=== PATIENT | male | born 1945 | race Two or more races ===

== ENCOUNTER 2023-08-28 09:45 | Inpatient (IN) | payer OTHER ==
[~2023-08-28] VITALS: Ht 175.3 cm; Wt 60.8 kg
[2023-08-28] MEDS ORDERED: LIPITOR40 MG PO (14:18)
[2023-08-28] MEDS ORDERED: TRADJENTA5 MG PO (14:18)
[2023-08-28] MEDS ORDERED: GLIPIZIDE XL2.5 MG PO (14:18)
[2023-08-28] MEDS ORDERED: LANTUS SOL100 UNIT/1 (14:18)
[2023-08-28] MEDS ORDERED: METFORMIN HCL500 M3 PO (14:19)
[2023-09-03 21:20] LABS: HEMATOCRIT 36.2 % (39.0-48.0); HEMOGLOBIN 12.4 g/dL (13-16.00); MEAN CELL VOLUME 91.1 fL (80.0-100.00); MEAN CORPUSCULAR HEMOGLOBIN 31.3 pg (27.00-32.0); MEAN CORPUSCULAR HGB CONC 34.3 g/dl (32.0-36.0); PLATELET COUNT 204 K/uL (150-450); RED BLOOD COUNT 3.97 M/uL (4.00-6.00); RED CELL DISTRIBUTION WIDTH 13.7 % (11.5-14.5)
[2023-09-03 21:38] LABS: ALBUMIN 3.3 gm/dL (3.4-5.0); CALCIUM 8.9 mg/dL (8.5-10.1); CREATININE SERUM 1.13 mg/dL (0.70-1.30); GFR 62.76; MAGNESIUM 1.8 mg/dL (1.8-2.4); PHOSPHOROUS 3.5 mg/dL (2.5-4.9); POTASSIUM 4.85 mEq/L (3.5-5.1)
[2023-09-04 06:29] LABS: HEMATOCRIT 35.1 % (39.0-48.0); HEMOGLOBIN 12.3 g/dL (13-16.00); MEAN CELL VOLUME 90.5 fL (80.0-100.00); MEAN CORPUSCULAR HEMOGLOBIN 31.7 pg (27.00-32.0); PLATELET COUNT 180 K/uL (150-450); RED BLOOD COUNT 3.88 M/uL (4.00-6.00); RED CELL DISTRIBUTION WIDTH 13.3 % (11.5-14.5)
[2023-09-04 06:55] LABS: ALBUMIN 3.1 gm/dL (3.4-5.0); CALCIUM 8.3 mg/dL (8.5-10.1); CREATININE SERUM 0.98 mg/dL (0.70-1.30); GFR 73.97; MAGNESIUM 1.9 mg/dL (1.8-2.4); PHOSPHOROUS 3.1 mg/dL (2.5-4.9); POTASSIUM 4.68 mEq/L (3.5-5.1)
[2023-09-05 06:44] LABS: HEMATOCRIT 34.9 % (39.0-48.0); HEMOGLOBIN 12.3 g/dL (13-16.00); MEAN CORPUSCULAR HEMOGLOBIN 31.8 pg (27.00-32.0); MEAN CORPUSCULAR HGB CONC 35.3 g/dl (32.0-36.0); PLATELET COUNT 196 K/uL (150-450); RED BLOOD COUNT 3.88 M/uL (4.00-6.00); RED CELL DISTRIBUTION WIDTH 13.8 % (11.5-14.5)
[2023-09-05 07:09] LABS: CALCIUM 8.1 mg/dL (8.5-10.1); CREATININE SERUM 0.99 mg/dL (0.70-1.30); GFR 73.11; MAGNESIUM 2.1 mg/dL (1.8-2.4); PHOSPHOROUS 2.3 mg/dL (2.5-4.9); POTASSIUM 4.66 mEq/L (3.5-5.1)
[2023-09-06] MEDS ORDERED: TRAM1TAB98 PO (12:26)
[2023-09-06] MEDS ORDERED: HYOSCYAMINE0.125 M1 SL (12:26)
[2023-09-06] MEDS ORDERED: PEPCID AC20 MG PO (12:27)
== END 2023-09-06 12:41 | disposition home or self-care (01) | DRG 330 ==
LOC: SURH 09-03 09:45 → O/R 09-03 10:30 → SURH 09-03 12:30 → SURG 09-03 19:55
PROVIDERS: Internal Medicine Geriatric Medicine; ADMIT Surgery; ATTEND Surgery
PROC: 0DTP4ZZ Resection of Rectum, Percutaneous Endoscopic Approach (ICD-10-PCS; 2023-09-03)
PROC: 0DTN4ZZ Resection of Sigmoid Colon, Percutaneous Endoscopic Approach (ICD-10-PCS; 2023-09-03)
PROC: 07BC4ZZ Excision of Pelvis Lymphatic, Percutaneous Endoscopic Approach (ICD-10-PCS; 2023-09-03)
PROC: 0DJD8ZZ Inspection of Lower Intestinal Tract, Via Natural or Artificial Opening Endoscopic (ICD-10-PCS; 2023-09-03)
PROC: 0D1B4Z4 Bypass Ileum to Cutaneous, Percutaneous Endoscopic Approach (ICD-10-PCS; principal; 2023-09-03 12:30)
DX: C20 Malignant neoplasm of rectum (principal); K92.1 Melena; E11.65 Type 2 diabetes mellitus with hyperglycemia; R59.0 Localized enlarged lymph nodes; K66.0 Peritoneal adhesions (postprocedural) (postinfection); Z43.2 Encounter for attention to ileostomy; Z79.84 Long term (current) use of oral hypoglycemic drugs

== ENCOUNTER 2023-09-18 09:34 | Inpatient (IN) | payer OTHER ==
[~2023-09-18] VITALS: Ht 175.3 cm; Wt 51.3 kg
[~2023-09-18 09:34] MED LIST: GLIPIZIDE XL2.5 MG PO; HYOSCYAMINE0.125 M1 SL; LANTUS SOL100 UNIT/1; LIPITOR40 MG PO; METFORMIN HCL500 M3 PO; PEPCID AC20 MG PO; TRADJENTA5 MG PO; TRAM1TAB98 PO
[2023-09-18] MEDS ORDERED: INSULIN GL100 UNIT/3 (10:10)
[2023-09-18] MEDS ORDERED: METFORMIN HCL500 M4 (10:11)
[2023-09-18] MEDS ORDERED: LIPITOR40 MG (10:11)
[2023-09-18] MEDS ORDERED: PEPCID AC20 MG (10:11)
[2023-09-18 16:41] LABS: ABG PH 7.406 (7.35-7.45); ABG PO2 141.1 mmHg (80-100); ABG pCO2 29.1 mmHg (35-45); BASE EXCESS -5.3 mmol/l; BICARBONATE 17.9 mmol/l (23-25); Tco2 18.8 mmol/l; allen test SATISFACTORY; o2 32 %; puncture site BRADIAL LEFT
[2023-09-18 16:42] LABS: SaO2 99.1 %
[2023-09-18 17:13] LABS: HEMATOCRIT 40.7 % (39.0-48.0); HEMOGLOBIN 14.2 g/dL (13-16.00); MEAN CELL VOLUME 86.7 fL (80.0-100.00); MEAN CORPUSCULAR HEMOGLOBIN 30.3 pg (27.00-32.0); MEAN CORPUSCULAR HGB CONC 34.9 g/dl (32.0-36.0); PLATELET COUNT 556 K/uL (150-450); RED CELL DISTRIBUTION WIDTH 13.4 % (11.5-14.5)
[2023-09-18 17:19] LABS: ERYTHROCYTE SEDIMENTATION RATE 28 mm/hr
[2023-09-18 17:26] LABS: CREATININE SERUM 2.6 mg/dL (0.70-1.30); GFR 23.99; MAGNESIUM 2.8 mg/dL (1.8-2.4); PHOSPHOROUS 5.2 mg/dL (2.5-4.9); POTASSIUM 5.09 mEq/L (3.5-5.1)
[2023-09-18 17:34] LABS: C-REACTIVE PROTEIN 12.6 MG/DL (0.00-0.29)
[2023-09-19 07:52] LABS: ALBUMIN 3.1 gm/dL (3.4-5.0); BILIRUBIN TOTAL 0.52 mg/dL (0.3-1.2); CALCIUM 9.3 mg/dL (8.5-10.1); CREATININE SERUM 2.19 mg/dL (0.70-1.30); GFR 29.25; GLOBULINA 3.7 G/DL (2.4-3.5); MAGNESIUM 2.6 mg/dL (1.8-2.4); PHOSPHOROUS 4.5 mg/dL (2.5-4.9); POTASSIUM 4.93 mEq/L (3.5-5.1); TOTAL PROTEIN 6.8 gm/dL (6.4-8.2)
[2023-09-19 07:55] LABS: C-REACTIVE PROTEIN 13.4 MG/DL (0.00-0.29)
[2023-09-19 10:49] LABS: HEMOGLOBIN 12.8 g/dL (13-16.00); MEAN CELL VOLUME 87.5 fL (80.0-100.00); MEAN CORPUSCULAR HEMOGLOBIN 30.2 pg (27.00-32.0); MEAN CORPUSCULAR HGB CONC 34.5 g/dl (32.0-36.0); PLATELET COUNT 481 K/uL (150-450); RED BLOOD COUNT 4.23 M/uL (4.00-6.00)
[2023-09-19 19:20] LABS: URINE APPEARANCE Turbid; URINE BILIRRUBIN Negative (NEGATIVE); URINE BLOOD Large; URINE COLOR Yellow; URINE GLUCOSE Negative (NEGATIVE); URINE LEUKOCYTE Trace; URINE NITRATE Negative; URINE PROTEIN 30 (NEGATIVE); URINE UROBILINOGEN 0.2 E.U./dl
[2023-09-19 19:21] LABS: URINE BACTERIA 153.7 uL (0.0-1933); URINE EPITHELIAL CELLS 7.7 uL (0.0-38.8); URINE RBC 1065.5 uL (0.0-20.8); URINE WBC 13.9 uL (0.0-23.2)
[2023-09-19 19:50] LABS: URINE CRYSTALS MANY /HPF
[2023-09-20 08:27] LABS: HEMOGLOBIN 12.3 g/dL (13-16.00); MEAN CELL VOLUME 89.3 fL (80.0-100.00); MEAN CORPUSCULAR HEMOGLOBIN 30.5 pg (27.00-32.0); MEAN CORPUSCULAR HGB CONC 34.1 g/dl (32.0-36.0); PLATELET COUNT 467 K/uL (150-450); RED BLOOD COUNT 4.03 M/uL (4.00-6.00)
[2023-09-20 08:50] LABS: CALCIUM 8.7 mg/dL (8.5-10.1); CREATININE SERUM 1.7 mg/dL (0.70-1.30); GFR 39.17; MAGNESIUM 2.5 mg/dL (1.8-2.4); PHOSPHOROUS 3.7 mg/dL (2.5-4.9); POTASSIUM 4.88 mEq/L (3.5-5.1)
[2023-09-20 08:51] LABS: INR 1.09; PARTIAL THROMBOPLASTIN TIME 31.9 SECONDS (22.0-34.0); PROTHROMBIN TIME 11.4 SECONDS (9.0-11.5)
[2023-09-21 07:11] LABS: ALBUMIN 2.5 gm/dL (3.4-5.0); CALCIUM 8.9 mg/dL (8.5-10.1); CREATININE SERUM 1.44 mg/dL (0.70-1.30); GFR 47.44; MAGNESIUM 2.3 mg/dL (1.8-2.4); PHOSPHOROUS 2.6 mg/dL (2.5-4.9); POTASSIUM 5.03 mEq/L (3.5-5.1)
[2023-09-21 07:18] LABS: HEMATOCRIT 33.7 % (39.0-48.0); HEMOGLOBIN 11.8 g/dL (13-16.00); MEAN CELL VOLUME 90.2 fL (80.0-100.00); MEAN CORPUSCULAR HEMOGLOBIN 31.6 pg (27.00-32.0); PLATELET COUNT 377 K/uL (150-450); RED BLOOD COUNT 3.73 M/uL (4.00-6.00); RED CELL DISTRIBUTION WIDTH 13.1 % (11.5-14.5)
[2023-09-23 07:29] LABS: CALCIUM 8.4 mg/dL (8.5-10.1); CREATININE SERUM 1.19 mg/dL (0.70-1.30); GFR 59.12; MAGNESIUM 1.5 mg/dL (1.8-2.4); PHOSPHOROUS 3.3 mg/dL (2.5-4.9); POTASSIUM 5.23 mEq/L (3.5-5.1)
[2023-09-23 07:32] LABS: C-REACTIVE PROTEIN 11.2 MG/DL (0.00-0.29)
[2023-09-23 08:18] LABS: HEMATOCRIT 34.1 % (39.0-48.0); HEMOGLOBIN 11.8 g/dL (13-16.00); MEAN CELL VOLUME 91.3 fL (80.0-100.00); MEAN CORPUSCULAR HEMOGLOBIN 31.6 pg (27.00-32.0); MEAN CORPUSCULAR HGB CONC 34.6 g/dl (32.0-36.0); PLATELET COUNT 349 K/uL (150-450); RED BLOOD COUNT 3.74 M/uL (4.00-6.00); RED CELL DISTRIBUTION WIDTH 12.9 % (11.5-14.5)
[2023-09-25 07:42] LABS: HEMATOCRIT 35.1 % (39.0-48.0); HEMOGLOBIN 11.8 g/dL (13-16.00); MEAN CELL VOLUME 89.1 fL (80.0-100.00); MEAN CORPUSCULAR HGB CONC 33.7 g/dl (32.0-36.0); PLATELET COUNT 351 K/uL (150-450); RED BLOOD COUNT 3.94 M/uL (4.00-6.00); RED CELL DISTRIBUTION WIDTH 12.9 % (11.5-14.5)
[2023-09-25 08:12] LABS: CALCIUM 8.3 mg/dL (8.5-10.1); CREATININE SERUM 0.96 mg/dL (0.70-1.30); GFR 75.75; MAGNESIUM 1.8 mg/dL (1.8-2.4); PHOSPHOROUS 2.8 mg/dL (2.5-4.9); POTASSIUM 4.57 mEq/L (3.5-5.1)
[2023-09-25 08:17] LABS: C-REACTIVE PROTEIN 6.13 MG/DL (0.00-0.29)
[2023-09-25 13:09] LABS: ABG PH 7.444 (7.35-7.45); ABG PO2 101.6 mmHg (80-100); ABG pCO2 29.8 mmHg (35-45); BASE EXCESS -2.8 mmol/l
[2023-09-25 13:10] LABS: Tco2 20.9 mmol/l; o2 32 %
[2023-09-25 13:12] LABS: allen test SATISFACTORY; puncture site RADIAL LEFT
[2023-09-25 13:27] LABS: URINE APPEARANCE Turbid; URINE BILIRRUBIN Negative (NEGATIVE); URINE BLOOD Large; URINE COLOR Red; URINE LEUKOCYTE Moderate; URINE NITRATE Negative; URINE UROBILINOGEN 0.2 E.U./dl
[2023-09-25 13:32] LABS: URINE BACTERIA 1064.6 uL (0.0-1933); URINE EPITHELIAL CELLS 32.7 uL (0.0-38.8)
[2023-09-25 13:50] LABS: URINE GLUCOSE >=1000 MG/DL (NEGATIVE); URINE PROTEIN 100 (NEGATIVE); URINE RBC > 10558.9 uL (0.0-20.8)
[2023-09-25 13:51] LABS: URINE YEAST MANY /hpf
[2023-09-25 14:05] LABS: INR 1.14; PARTIAL THROMBOPLASTIN TIME 37.6 SECONDS (22.0-34.0); PROTHROMBIN TIME 11.9 SECONDS (9.0-11.5)
[2023-09-26 07:41] LABS: HEMATOCRIT 34.3 % (39.0-48.0); HEMOGLOBIN 11.7 g/dL (13-16.00); MEAN CELL VOLUME 89.3 fL (80.0-100.00); MEAN CORPUSCULAR HEMOGLOBIN 30.4 pg (27.00-32.0); PLATELET COUNT 300 K/uL (150-450); RED BLOOD COUNT 3.85 M/uL (4.00-6.00)
[2023-09-26 08:31] LABS: CALCIUM 8.3 mg/dL (8.5-10.1); CREATININE SERUM 1.08 mg/dL (0.70-1.30); GFR 66.12; MAGNESIUM 1.7 mg/dL (1.8-2.4); PHOSPHOROUS 2.2 mg/dL (2.5-4.9); POTASSIUM 4.59 mEq/L (3.5-5.1)
[2023-09-26] MEDS ORDERED: HYOSCYAMINE0.125 M1 SL (13:54)
[2023-09-26] MEDS ORDERED: FLUCONAZOLE100 MG PO (13:54)
[2023-09-26] MEDS ORDERED: LIPITOR40 MG PO (13:55)
[2023-09-26] MEDS ORDERED: PRE PROTEIN1 EACH PO (13:55)
[2023-09-26] MEDS ORDERED: PEPCID AC20 MG PO (13:56)
[2023-09-26] MEDS ORDERED: LOPERAMIDE2 MG PO (13:56)
[2023-09-26] MEDS ORDERED: LANTUS SOL100 UNIT/1 SUBCUTANEO (13:57)
[2023-09-26] MEDS ORDERED: HUMALOG100 UNIT/2 SUBCUTANEO (13:59)
[2023-09-26] MEDS ORDERED: INTESTINEX680 M2 PO (14:00)
== END 2023-09-26 22:30 | disposition home or self-care (01) | DRG 871 ==
LOC: ER 09:34 → SEC-K 13:29 → SURG 17:10
PROVIDERS: Internal Medicine Nephrology; ADMIT Internal Medicine Geriatric Medicine; ATTEND Internal Medicine Geriatric Medicine
PROC: 02HV33Z Insertion of Infusion Device into Superior Vena Cava, Percutaneous Approach (ICD-10-PCS; 2023-09-20)
PROC: BW21ZZZ Computerized Tomography (CT Scan) of Abdomen and Pelvis (ICD-10-PCS; principal; 2023-09-22)
PROC: BW21YZZ Computerized Tomography (CT Scan) of Abdomen and Pelvis using Other Contrast (ICD-10-PCS; 2023-09-24)
DX: A41.9 Sepsis, unspecified organism (principal); E11.00 Type 2 diabetes mellitus with hyperosmolarity without nonketotic hyperglycemic-hyperosmolar coma (NKHHC); J18.9 Pneumonia, unspecified organism; E87.1 Hypo-osmolality and hyponatremia; N17.8 Other acute kidney failure; C20 Malignant neoplasm of rectum; E22.1 Hyperprolactinemia; E11.65 Type 2 diabetes mellitus with hyperglycemia; E86.0 Dehydration; Z43.2 Encounter for attention to ileostomy; E83.41 Hypermagnesemia; F43.22 Adjustment disorder with anxiety; N20.0 Calculus of kidney; Z79.85 Long-term (current) use of injectable non-insulin antidiabetic drugs; Z79.4 Long term (current) use of insulin

== ENCOUNTER 2023-10-12 12:50 | Inpatient (IN) | payer OTHER ==
[~2023-10-12] VITALS: Ht 175.3 cm; Wt 50.3 kg
[~2023-10-12 12:50] MED LIST changes: +FLUCONAZOLE100 MG PO; +HUMALOG100 UNIT/2 SUBCUTANEO; +INSULIN GL100 UNIT/3; +INTESTINEX680 M2 PO; +LANTUS SOL100 UNIT/1 SUBCUTANEO; +LIPITOR40 MG; +LOPERAMIDE2 MG PO; +METFORMIN HCL500 M4; +PEPCID AC20 MG; +PRE PROTEIN1 EACH PO
[2023-10-12 14:04] LABS: HEMATOCRIT 36.1 % (39.0-48.0); HEMOGLOBIN 12.6 g/dL (13-16.00); MEAN CELL VOLUME 86.9 fL (80.0-100.00); MEAN CORPUSCULAR HEMOGLOBIN 30.3 pg (27.00-32.0); MEAN CORPUSCULAR HGB CONC 34.9 g/dl (32.0-36.0); PLATELET COUNT 645 K/uL (150-450); RED BLOOD COUNT 4.15 M/uL (4.00-6.00)
[2023-10-12 14:40] LABS: ALBUMIN 2.5 gm/dL (3.4-5.0); BILIRUBIN TOTAL 0.51 mg/dL (0.3-1.2); CALCIUM 10.6 mg/dL (8.5-10.1); CREATININE SERUM 2.69 mg/dL (0.70-1.30); GFR 23.07; GLOBULINA 5.4 G/DL (2.4-3.5); TOTAL PROTEIN 7.9 gm/dL (6.4-8.2)
[2023-10-12 15:02] LABS: URINE APPEARANCE Cloudy; URINE BILIRRUBIN Negative (NEGATIVE); URINE BLOOD Large; URINE COLOR Yellow; URINE LEUKOCYTE Negative; URINE NITRATE Negative; URINE PROTEIN 30 (NEGATIVE); URINE UROBILINOGEN 0.2 E.U./dl
[2023-10-12 15:06] LABS: URINE BACTERIA 60.4 uL (0.0-1933); URINE EPITHELIAL CELLS 8.5 uL (0.0-38.8); URINE RBC 100.3 uL (0.0-20.8); URINE WBC 13.2 uL (0.0-23.2)
[2023-10-12 15:14] LABS: POTASSIUM 7.42 mEq/L (3.5-5.1)
[2023-10-12 15:44] LABS: URINE GLUCOSE 100 MG/DL (NEGATIVE)
[2023-10-12 20:34] LABS: CALCIUM 9.4 mg/dL (8.5-10.1); CREATININE SERUM 2.22 mg/dL (0.70-1.30); GFR 28.79
[2023-10-12 20:40] LABS: ABG PH 7.374 (7.35-7.45); ABG PO2 129.6 mmHg (80-100); ABG pCO2 33.1 mmHg (35-45); BASE EXCESS -5.3 mmol/l; BICARBONATE 18.9 mmol/l (23-25); Tco2 19.9 mmol/l; o2 31 %; puncture site RADIAL LEFT
[2023-10-12 20:40] LABS: POTASSIUM 7.18 mEq/L (3.5-5.1)
[2023-10-12 20:41] LABS: allen test SATISFACTORY
[2023-10-12 20:42] LABS: SaO2 98.8 %
[2023-10-13 06:29] LABS: HEMATOCRIT 31.2 % (39.0-48.0); MEAN CELL VOLUME 85.2 fL (80.0-100.00); MEAN CORPUSCULAR HEMOGLOBIN 30.1 pg (27.00-32.0); MEAN CORPUSCULAR HGB CONC 35.3 g/dl (32.0-36.0); PLATELET COUNT 565 K/uL (150-450); RED BLOOD COUNT 3.66 M/uL (4.00-6.00)
[2023-10-13 06:38] LABS: ERYTHROCYTE SEDIMENTATION RATE 67 mm/hr
[2023-10-13 06:40] LABS: BILIRUBIN TOTAL 0.41 mg/dL (0.3-1.2); CALCIUM 9.6 mg/dL (8.5-10.1); CREATININE SERUM 2.02 mg/dL (0.70-1.30); GFR 32.1; GLOBULINA 4.5 G/DL (2.4-3.5); MAGNESIUM 1.9 mg/dL (1.8-2.4); PHOSPHOROUS 3.9 mg/dL (2.5-4.9); POTASSIUM 5.79 mEq/L (3.5-5.1); TOTAL PROTEIN 6.5 gm/dL (6.4-8.2); TSH 2.01 uIU/mL (0.358-3.74)
[2023-10-13 06:41] LABS: C-REACTIVE PROTEIN 7.43 MG/DL (0.00-0.29)
[2023-10-14 14:12] LABS: HEMATOCRIT 32.2 % (39.0-48.0); HEMOGLOBIN 10.9 g/dL (13-16.00); MEAN CELL VOLUME 85.8 fL (80.0-100.00); MEAN CORPUSCULAR HGB CONC 33.8 g/dl (32.0-36.0); PLATELET COUNT 495 K/uL (150-450); RED BLOOD COUNT 3.75 M/uL (4.00-6.00); RED CELL DISTRIBUTION WIDTH 13.6 % (11.5-14.5)
[2023-10-14 14:31] LABS: CREATININE SERUM 1.38 mg/dL (0.70-1.30); GFR 49.83; MAGNESIUM 1.8 mg/dL (1.8-2.4)
[2023-10-14 14:33] LABS: POTASSIUM 5.94 mEq/L (3.5-5.1)
[2023-10-15 07:39] LABS: HEMATOCRIT 27.5 % (39.0-48.0); HEMOGLOBIN 9.3 g/dL (13-16.00); MEAN CELL VOLUME 87.5 fL (80.0-100.00); MEAN CORPUSCULAR HEMOGLOBIN 29.7 pg (27.00-32.0); PLATELET COUNT 386 K/uL (150-450); RED BLOOD COUNT 3.14 M/uL (4.00-6.00); RED CELL DISTRIBUTION WIDTH 13.1 % (11.5-14.5)
[2023-10-15 08:03] LABS: CREATININE SERUM 0.9 mg/dL (0.70-1.30); GFR 81.61; MAGNESIUM 1.5 mg/dL (1.8-2.4); PHOSPHOROUS 2.2 mg/dL (2.5-4.9); POTASSIUM 4.75 mEq/L (3.5-5.1)
[2023-10-17 04:58] LABS: HEMATOCRIT 27.9 % (39.0-48.0); MEAN CELL VOLUME 85.1 fL (80.0-100.00); MEAN CORPUSCULAR HGB CONC 34.8 g/dl (32.0-36.0); PLATELET COUNT 401 K/uL (150-450); RED BLOOD COUNT 3.28 M/uL (4.00-6.00); RED CELL DISTRIBUTION WIDTH 13.6 % (11.5-14.5)
[2023-10-17 05:04] LABS: HEMOGLOBIN 9.7 g/dL (13-16.00); MEAN CORPUSCULAR HEMOGLOBIN 29.5 pg (27.00-32.0)
[2023-10-17 05:53] LABS: CALCIUM 8.1 mg/dL (8.5-10.1); CREATININE SERUM 0.8 mg/dL (0.70-1.30); GFR 93.49; POTASSIUM 4.54 mEq/L (3.5-5.1)
[2023-10-17 06:12] LABS: MAGNESIUM 1.2 mg/dL (1.8-2.4); PHOSPHOROUS 1.9 mg/dL (2.5-4.9)
[2023-10-19 07:13] LABS: CALCIUM 7.7 mg/dL (8.5-10.1); CREATININE SERUM 0.77 mg/dL (0.70-1.30); GFR 97.71; POTASSIUM 4.75 mEq/L (3.5-5.1)
[2023-10-19 08:38] LABS: MAGNESIUM 1.4 mg/dL (1.8-2.4); PHOSPHOROUS 1.9 mg/dL (2.5-4.9)
== END 2023-10-21 07:18 | disposition home or self-care (01) | DRG 638 ==
LOC: ER 12:50 → ICU-2 19:42 → MEDI 19:42 → ICU-2 21:00 → SEC-K 10-13 14:05 → SURH 10-13 17:00
PROVIDERS: Emergency Medicine; ADMIT Internal Medicine Geriatric Medicine; ATTEND Internal Medicine Geriatric Medicine
PROC: 02HV33Z Insertion of Infusion Device into Superior Vena Cava, Percutaneous Approach (ICD-10-PCS; principal; 2023-10-12)
PROC: BW28ZZZ Computerized Tomography (CT Scan) of Head (ICD-10-PCS; 2023-10-12)
PROC: 4A12X4Z Monitoring of Cardiac Electrical Activity, External Approach (ICD-10-PCS; 2023-10-14)
DX: E11.10 Type 2 diabetes mellitus with ketoacidosis without coma (principal); C20 Malignant neoplasm of rectum; N17.9 Acute kidney failure, unspecified; R65.10 Systemic inflammatory response syndrome (SIRS) of non-infectious origin without acute organ dysfunction; N28.9 Disorder of kidney and ureter, unspecified; E11.65 Type 2 diabetes mellitus with hyperglycemia; E86.0 Dehydration; Z93.2 Ileostomy status; Z92.21 Personal history of antineoplastic chemotherapy; Z79.85 Long-term (current) use of injectable non-insulin antidiabetic drugs; D72.829 Elevated white blood cell count, unspecified; D50.0 Iron deficiency anemia secondary to blood loss (chronic)

== ENCOUNTER 2023-12-20 07:18 | Outpatient (CLI) | payer OTHER | END 2023-12-20 07:24 | disposition home or self-care (01) | LOC: RX STUDY 07:18 | PROVIDERS: ATTEND Surgery | DX: C20 Malignant neoplasm of rectum (principal); R19.5 Other fecal abnormalities; R59.0 Localized enlarged lymph nodes ==

== ENCOUNTER 2024-01-10 06:31 | Outpatient (CLI) | payer OTHER ==
[2024-01-10 07:03] LABS: PH,URINE 5.5 (5.0-8.0); URINE APPEARANCE Clear; URINE BILIRRUBIN Negative (NEGATIVE); URINE BLOOD Negative; URINE COLOR Yellow; URINE GLUCOSE Negative (NEGATIVE); URINE LEUKOCYTE Negative; URINE NITRATE Negative; URINE PROTEIN Negative (NEGATIVE); URINE UROBILINOGEN 0.2 E.U./dl
[2024-01-10 07:04] LABS: HEMOGLOBIN 11.8 g/dL (13-16.00); MEAN CELL VOLUME 92.5 fL (80.0-100.00); MEAN CORPUSCULAR HEMOGLOBIN 31.1 pg (27.00-32.0); MEAN CORPUSCULAR HGB CONC 33.7 g/dl (32.0-36.0); PLATELET COUNT 301 K/uL (150-450); RED BLOOD COUNT 3.78 M/uL (4.00-6.00); RED CELL DISTRIBUTION WIDTH 14.5 % (11.5-14.5)
[2024-01-10 07:06] LABS: URINE EPITHELIAL CELLS 1.8 uL (0.0-38.8)
[2024-01-10 07:18] LABS: URINE BACTERIA 3.7 uL (0.0-1933); URINE RBC 0.8 uL (0.0-20.8); URINE WBC 1.5 uL (0.0-23.2)
[2024-01-10 07:39] LABS: INR 0.98; PARTIAL THROMBOPLASTIN TIME 27.3 SECONDS (22.0-34.0); PROTHROMBIN TIME 10.3 SECONDS (9.0-11.5)
[2024-01-10 08:04] LABS: ALBUMIN 3.4 gm/dL (3.4-5.0); BILIRUBIN TOTAL 0.51 mg/dL (0.3-1.2); CALCIUM 9.8 mg/dL (8.5-10.1); GFR 72.27; GLOBULINA 3.2 G/DL (2.4-3.5); POTASSIUM 5.45 mEq/L (3.5-5.1); TOTAL PROTEIN 6.6 gm/dL (6.4-8.2)
[2024-01-10] MEDS ORDERED: LOPERAMIDE2 M1 (11:27)
[2024-01-10] MEDS ORDERED: VIRT-CAPS SOFTGE1 MG (11:27)
[2024-01-10] MEDS ORDERED: TRADJENTA5 MG (11:27)
[2024-01-10] MEDS ORDERED: ATORVASTATIN CA40 MG (11:28)
== END 2024-01-10 14:06 | disposition home or self-care (01) ==
LOC: LAB 06:31
PROVIDERS: ATTEND Surgery
DX: C20 Malignant neoplasm of rectum (principal); K92.1 Melena; R59.0 Localized enlarged lymph nodes

== ENCOUNTER 2024-01-11 15:09 | Inpatient (IN) | payer OTHER ==
[~2024-01-11 15:09] MED LIST changes: +ATORVASTATIN CA40 MG; +LOPERAMIDE2 M1; +TRADJENTA5 MG; +VIRT-CAPS SOFTGE1 MG
[2024-01-14] MEDS ORDERED: METRONIDAZOLE/SODIUM CHLORIDE 500 MG/100 ML PIGGYBACK IV ONE (08:11)
[2024-01-14] MEDS ORDERED: CEFTRIAXONE SODIUM 2,000 MG VIAL ONE (08:11)
[2024-01-14] MEDS ORDERED: LIDOCAINE HCL 1%/Epi 20ML VIAL IJ ONE ×2 (08:23→09:30)
[2024-01-14] MEDS ORDERED: BUPIVACAINE HCL/PF 0.5% 30ML ML ONE (08:23)
[2024-01-14] MEDS ORDERED: CHLORHEXIDINE GLUCONATE 120 ML BOTTLE TOP ONE ×2 (08:53→09:30)
[2024-01-14] MEDS ORDERED: METRONIDAZOLE/SODIUM CHLORIDE 500 MG/100 ML PIGGYBACK IV SCH ×2 (09:30→17:00)
[2024-01-14] MEDS ORDERED: BUPIVACAINE HCL/PF 0.5% 30ML ML IJ ONE (09:30)
[2024-01-14] MEDS ORDERED: CEFTRIAXONE SODIUM 2,000 MG VIAL IV SCH (09:30)
[2024-01-14] MEDS ORDERED: OxyCODONE HCL 5 MG TABLET (ROXICODONE) PO PRN (10:15)
[2024-01-14] MEDS ORDERED: ONDANSETRON HCL 2 MG/ML VIAL IV PRN (10:15)
[2024-01-14] MEDS ORDERED: MORPHINE SULFATE 4 MG/ML CARTRIDGE IV PRN (10:15)
[2024-01-14] MEDS ORDERED: 0.9 % SODIUM CHLORIDE 1,000 ML IV SCH (10:15)
[2024-01-14] MEDS ORDERED: DEXTROSE 50 % IN WATER 0.5 G/ML DISP.SYRIN IV PRN ×2 (10:15→12:00)
[2024-01-14] MEDS ORDERED: INSULIN LISPRO 1,000 UNIT/10 ML UNITS SUBCUTANEO SCH (11:00)
[2024-01-14] MEDS ORDERED: INSULIN LISPRO 1,000 UNIT/10 ML UNITS SUBCUTANEO PRN (12:00)
[2024-01-14 12:47] LABS: HEMATOCRIT 32.1 % (39.0-48.0); HEMOGLOBIN 11.1 g/dL (13-16.00); MEAN CELL VOLUME 92.6 fL (80.0-100.00); MEAN CORPUSCULAR HEMOGLOBIN 31.9 pg (27.00-32.0); MEAN CORPUSCULAR HGB CONC 34.4 g/dl (32.0-36.0); PLATELET COUNT 245 K/uL (150-450); RED BLOOD COUNT 3.47 M/uL (4.00-6.00)
[2024-01-14] MEDS ORDERED: SOD FERRIC GLUC COMPLX/SUCROSE 62.5 MG in 0.9 % SODIUM CHLORIDE 50 ML IV SCH (12:53)
[2024-01-14] MEDS ORDERED: HYOSCYAMINE SULFATE 0.125 MG TAB.SUBL SL SCH (13:00)
[2024-01-14 13:26] LABS: ALBUMIN 3.1 gm/dL (3.4-5.0); CALCIUM 8.9 mg/dL (8.5-10.1); CREATININE SERUM 0.9 mg/dL (0.70-1.30); GFR 81.61; MAGNESIUM 1.8 mg/dL (1.8-2.4); PHOSPHOROUS 3.4 mg/dL (2.5-4.9); POTASSIUM 5.28 mEq/L (3.5-5.1)
[2024-01-14] MEDS ORDERED: ACETAMINOPHEN 500 MG GEL..CAP PO SCH (14:00)
[2024-01-14] MEDS ORDERED: POLYETHYLENE GLYCOL 3350 17 GM BLIST.PACK PO SCH (17:00)
[2024-01-14] MEDS ORDERED: GABAPENTIN 300 MG CAPSULE PO SCH (17:00)
[2024-01-14] MEDS ORDERED: FAMOTIDINE/PF 20 MG/2 ML VIAL IV PUSH SCH (21:00)
[2024-01-15 06:46] LABS: HEMATOCRIT 28.1 % (39.0-48.0); HEMOGLOBIN 9.7 g/dL (13-16.00); MEAN CELL VOLUME 91.6 fL (80.0-100.00); MEAN CORPUSCULAR HEMOGLOBIN 31.5 pg (27.00-32.0); MEAN CORPUSCULAR HGB CONC 34.4 g/dl (32.0-36.0); PLATELET COUNT 218 K/uL (150-450); RED BLOOD COUNT 3.07 M/uL (4.00-6.00); RED CELL DISTRIBUTION WIDTH 14.2 % (11.5-14.5)
[2024-01-15 07:02] LABS: ALBUMIN 2.4 gm/dL (3.4-5.0); CALCIUM 8.1 mg/dL (8.5-10.1); CREATININE SERUM 0.7 mg/dL (0.70-1.30); GFR 109.07; MAGNESIUM 1.7 mg/dL (1.8-2.4); PHOSPHOROUS 2.9 mg/dL (2.5-4.9); POTASSIUM 4.13 mEq/L (3.5-5.1)
[2024-01-15] MEDS ORDERED: MAGNESIUM SULFATE IN WATER 50 ML IV ONE (07:30)
[2024-01-15] MEDS ORDERED: Cyanocobalamin/Mecobalamin 1 TAB.SL SL SCH (09:00)
[2024-01-15] MEDS ORDERED: ENOXAPARIN SODIUM 40 MG/0.4 ML SYRINGE SUBCUTANEO SCH (17:00)
[2024-01-15] MEDS ORDERED: ATORVASTATIN CALCIUM 40 MG TABLET PO SCH (17:00)
[2024-01-16 06:51] LABS: MEAN CELL VOLUME 91.8 fL (80.0-100.00); MEAN CORPUSCULAR HEMOGLOBIN 31.8 pg (27.00-32.0); MEAN CORPUSCULAR HGB CONC 34.6 g/dl (32.0-36.0); PLATELET COUNT 213 K/uL (150-450); RED BLOOD COUNT 3.15 M/uL (4.00-6.00); RED CELL DISTRIBUTION WIDTH 13.8 % (11.5-14.5)
[2024-01-16 07:05] LABS: CALCIUM 8.1 mg/dL (8.5-10.1); CREATININE SERUM 0.73 mg/dL (0.70-1.30); GFR 103.91; MAGNESIUM 2.1 mg/dL (1.8-2.4); PHOSPHOROUS 2.6 mg/dL (2.5-4.9); POTASSIUM 4.16 mEq/L (3.5-5.1)
[2024-01-16] MEDS ORDERED: ENOXAPARIN SODIUM 40 MG/0.4 ML SYRINGE SUBCUTANEO SCH (09:00)
[2024-01-16] MEDS ORDERED: INSULIN NPH HUMAN ISOPHANE 1,000 UNITS/10 ML UNITS SUBCUTANEO STA (11:13)
[2024-01-17] MEDS ORDERED: INSULIN NPH HUMAN ISOPHANE 1,000 UNITS/10 ML UNITS SUBCUTANEO SCH (07:30)
[2024-01-17] MEDS ORDERED: TRAM1TAB98 PO (13:33)
[2024-01-17] MEDS ORDERED: PEPCID AC20 MG PO (13:33)
== END 2024-01-17 15:07 | disposition home or self-care (01) | DRG 348 ==
LOC: O/R 01-14 06:15 → SURG 01-14 07:00 → SURH 01-14 10:34
PROVIDERS: Internal Medicine Geriatric Medicine; ADMIT Surgery; ATTEND Surgery
PROC: 0DBB4ZZ Excision of Ileum, Percutaneous Endoscopic Approach (ICD-10-PCS; principal; 2024-01-14 07:00)
DX: Z43.2 Encounter for attention to ileostomy (principal); C20 Malignant neoplasm of rectum; K92.1 Melena; K66.0 Peritoneal adhesions (postprocedural) (postinfection); E83.42 Hypomagnesemia; D64.89 Other specified anemias; E88.09 Other disorders of plasma-protein metabolism, not elsewhere classified; E11.65 Type 2 diabetes mellitus with hyperglycemia; Z79.4 Long term (current) use of insulin